=== PATIENT | female | born 1940 | race Caucasian/White ===

== ENCOUNTER 2022-05-26 13:48 | Outpatient (CLI) | payer OTHER | END 2022-05-26 13:50 | disposition home or self-care (01) | LOC: NUCLEAR 13:48 | PROVIDERS: ATTEND Orthopaedic Surgery | DX: M81.0 Age-related osteoporosis without current pathological fracture (principal) ==

== ENCOUNTER 2022-05-26 14:13 | Outpatient (CLI) | payer OTHER | END 2022-05-26 14:22 | disposition home or self-care (01) | LOC: RAD 14:13 | PROVIDERS: ATTEND Orthopaedic Surgery | DX: M79.672 Pain in left foot (principal); M25.572 Pain in left ankle and joints of left foot ==

== ENCOUNTER 2022-06-11 07:24 | Outpatient (CLI) | payer OTHER | END 2022-06-11 07:32 | disposition home or self-care (01) | LOC: EDBD 07:24 → LAB 07:24 | PROVIDERS: ATTEND Orthopaedic Surgery | DX: E55.9 Vitamin D deficiency, unspecified (principal); M85.9 Disorder of bone density and structure, unspecified; E56.1 Deficiency of vitamin K; E21.3 Hyperparathyroidism, unspecified; E88.9 Metabolic disorder, unspecified; M81.8 Other osteoporosis without current pathological fracture ==

== ENCOUNTER 2023-01-08 11:11 | Outpatient (CLI) | payer OTHER | END 2023-01-08 11:24 | disposition home or self-care (01) | LOC: RAD 11:11 | PROVIDERS: ATTEND Orthopaedic Surgery | DX: M25.572 Pain in left ankle and joints of left foot (principal) ==